=== PATIENT | female | born 1980 | race Hispanic/Latino ===

== ENCOUNTER 2022-11-14 18:33 | Inpatient (IN) | payer OTHER ==
[~2022-11-14] VITALS: Ht 160 cm; Wt 93.9 kg
[2022-11-14 19:05] LABS: BILIRUBIN,URINE NEGATIVE (NEGATIVE); COLOR,URINE YELLOW (YELLOW); GLUCOSE, URINE (UA) 50 mg/dL (NEGATIVE); KETONES,URINE 60 mg/dL (NEGATIVE); LEUKOCYTE ESTERASE ,URINE NEGATIVE Leu/uL (NEGATIVE); NITRATE,URINE NEGATIVE (NEGATIVE); OCCULT BLOOD,URINE MODERATE (NEGATIVE); PROTEIN,URINE 100 mg/dL (NEGATIVE); UROBILINOGEN,URINE 0.2 mg/dL (0.2-1.0)
[2022-11-14 19:07] LABS: HCG,QUALITATIVE URINE NEGATIVE (NEGATIVE)
[2022-11-14 19:08] LABS: APPEARANCE,URINE HAZY (CLEAR)
[2022-11-14 19:11] LABS: BACTERIA,URINE RARE /HPF (None Seen); MUCUS,URINE MANY LPF (None Seen); SQUAMOUS EPITHELIAL CELL,UR MANY /HPF (0-2); WBC,URINE 0-1 /HPF (0-1)
[2022-11-14 19:23] LABS: BASOPHILS % (AUTO) 0.3 % (0.0-5.0); EOSINOPHILS % (AUTO) 0.1 % (0.0-8.0); HEMATOCRIT 42.4 % (36-48); LYMPHOCYTES % (AUTO) 11.5 % (21.0-51.0); MEAN CORPUSCULAR HEMOGLOBIN 30.3 pg (27.0-33.0); MEAN CORPUSCULAR HGB CONC 33.7 g/dL (32.0-36.0); MEAN CORPUSCULAR VOLUME 89.8 fL (79-99); MONOCYTES % (AUTO) 3.7 % (3.0-13.0); NEUTROPHILS % (AUTO) 83.7 % (40.0-77.0); PLATELET COUNT (AUTO) 368 K/uL (130-400); RED BLOOD CELL COUNT(AUTO) 4.72 MIL/uL (4.00-5.50); RED CELL DISTRIBUTION WIDTH 12.5 % (11.0-15.5); WHITE BLOOD COUNT (AUTO) 15.3 K/uL (4.8-10.8)
[2022-11-14 19:32] LABS: CREATININE 0.8 mg/dL (0.5-1.5); POTASSIUM 3.9 mmol/L (3.5-5.1)
[2022-11-14 19:36] LABS: ALBUMIN 3.7 g/dL (3.5-5.0); TOTAL PROTEIN, SERUM 8.3 g/dL (6.0-8.3)
[2022-11-14] MEDS ORDERED: ONDANSETRON 4MG INJ IVP ONE (20:00)
[2022-11-14] MEDS ORDERED: MORPHINE 4 MG SYG IVP ONE (20:00)
[2022-11-14] MEDS ORDERED: ZOSYN 3.375GM+NS 50ML 50 ML IVPB STA (21:45)
[2022-11-14] MEDS ORDERED: 0.9%NACL 1000ML 2,000 ML IV ONE (22:00)
[2022-11-15] VITALS (7 sets, daily range): BP systolic 131–155; BP diastolic 67–95
[2022-11-15] MEDS ORDERED: NITROGLYCERIN 0.4 MG SL TAB SL PRN (01:00)
[2022-11-15] MEDS ORDERED: ACETAMINOPHEN 325 MG TAB PO PRN ×2 (01:00)
[2022-11-15] MEDS ORDERED: ONDANSETRON 4MG INJ IV PRN (01:00)
[2022-11-15] MEDS: 0.9%NACL 1000ML 1,000 ML IV SCH ×3 (01:05→20:22)
[2022-11-15 01:25] LABS: INR 0.96 (0.85-1.15); PROTHROMBIN TIME 10.5 SEC (9.6-11.6)
[2022-11-15] MEDS ORDERED: MORPHINE 2 MG SYG IVP PRN (04:00)
[2022-11-15] MEDS: ZOSYN 3.375GM+NS 50ML 50 ML IVPB SCH ×3 (05:53→20:22)
[2022-11-15 06:15] LABS: BASOPHILS % (AUTO) 0.3 % (0.0-5.0); EOSINOPHILS % (AUTO) 0.1 % (0.0-8.0); HEMATOCRIT 39.8 % (36-48); LYMPHOCYTES % (AUTO) 15.5 % (21.0-51.0); MEAN CORPUSCULAR HEMOGLOBIN 30.2 pg (27.0-33.0); MEAN CORPUSCULAR HGB CONC 32.7 g/dL (32.0-36.0); MEAN CORPUSCULAR VOLUME 92.3 fL (79-99); NEUTROPHILS % (AUTO) 77.6 % (40.0-77.0); PLATELET COUNT (AUTO) 314 K/uL (130-400); RED BLOOD CELL COUNT(AUTO) 4.31 MIL/uL (4.00-5.50); RED CELL DISTRIBUTION WIDTH 12.7 % (11.0-15.5); WHITE BLOOD COUNT (AUTO) 14.7 K/uL (4.8-10.8)
[2022-11-15 06:31] LABS: ALBUMIN 3.3 g/dL (3.5-5.0); CREATININE 0.7 mg/dL (0.5-1.5); MAGNESIUM 1.9 mg/dL (1.80-2.40); POTASSIUM 3.7 mmol/L (3.5-5.1); TOTAL PROTEIN, SERUM 7.4 g/dL (6.0-8.3)
[2022-11-15] MEDS: FAMOTIDINE 20MG TAB PO SCH ×3 (08:11→20:29)
[2022-11-15] MEDS ORDERED: KETOROLAC 15MG/ML VIAL (15MG/ML) ONE (13:59)
[2022-11-15] MEDS ORDERED: KETOROLAC 15MG/ML VIAL (15MG/ML) IM PRN (14:00)
[2022-11-15] MEDS: KETOROLAC 15MG/ML VIAL (15MG/ML) IV PRN (20:28)
[2022-11-16] VITALS (31 sets, daily range): BP systolic 115–202; BP diastolic 52–109
[2022-11-16] MEDS: ZOSYN 3.375GM+NS 50ML 50 ML IVPB SCH ×3 (03:54→19:28)
[2022-11-16] MEDS: KETOROLAC 15MG/ML VIAL (15MG/ML) IV PRN ×3 (03:59→19:28)
[2022-11-16] MEDS: 0.9%NACL 1000ML 1,000 ML IV SCH ×2 (04:51→16:55)
[2022-11-16 06:22] LABS: HEMATOCRIT 38.3 % (36-48); MEAN CORPUSCULAR HEMOGLOBIN 30.1 pg (27.0-33.0); MEAN CORPUSCULAR HGB CONC 32.9 g/dL (32.0-36.0); MEAN CORPUSCULAR VOLUME 91.6 fL (79-99); RED BLOOD CELL COUNT(AUTO) 4.18 MIL/uL (4.00-5.50); RED CELL DISTRIBUTION WIDTH 12.9 % (11.0-15.5); WHITE BLOOD COUNT (AUTO) 11.3 K/uL (4.8-10.8)
[2022-11-16 06:28] LABS: CREATININE 0.8 mg/dL (0.5-1.5); POTASSIUM 3.4 mmol/L (3.5-5.1)
[2022-11-16] MEDS: FAMOTIDINE 20MG TAB PO SCH ×2 (08:20→19:28)
[2022-11-16] MEDS ORDERED: ONDANSETRON 4MG INJ ONE (12:06)
[2022-11-16] MEDS ORDERED: PROPOFOL 10 MG/ML 20ML VIAL IV ONE (12:06)
[2022-11-16] MEDS ORDERED: DEXAMETHASONE SOD PHOSPHATE 10MG/ML 1ML VIAL ONE (12:06)
[2022-11-16] MEDS ORDERED: SUCCINYLCHOLINE CHLORIDE 20 MG/ML 10 ML VIAL ONE (12:06)
[2022-11-16] MEDS ORDERED: LIDOCAINE PF 100MG/5ML (2%) SYRINGE 5ML ONE (12:06)
[2022-11-16] MEDS ORDERED: GLYCOPYRROLATE 1 MG/5 ML SYRINGE ONE (12:06)
[2022-11-16] MEDS ORDERED: ROCURONIUM 10MG/1ML SYR 10 MG/ML ML ONE ×2 (12:07→12:37)
[2022-11-16] MEDS ORDERED: FENTANYL CITRATE PF 50 MCG/1 ML 2ML VIAL ONE (12:07)
[2022-11-16] MEDS ORDERED: NEOSTIGMINE 5MG/5ML SYR IV ONE (12:07)
[2022-11-16] MEDS ORDERED: MIDAZOLAM HCL 1 MG/ML 2ML VIAL ONE (12:07)
[2022-11-16] MEDS ORDERED: BUPIVACAINE/PF 0.5% 30ML VIAL ONE (12:17)
[2022-11-16] MEDS ORDERED: MEPERIDINE-PF 25 MG/ML SYG ONE (14:18)
[2022-11-16] MEDS ORDERED: MORPHINE 4 MG SYG IVP PRN (15:30)
[2022-11-16] MEDS ORDERED: KETOROLAC 30MG VIAL (30MG/ML) IVP PRN (15:30)
[2022-11-16] MEDS ORDERED: POTASSIUM CHLORIDE 20MEQ/100ML 100 ML IV PRN (16:30)
[2022-11-16] MEDS ORDERED: KCL 20 MEQ ERTAB PO PRN (16:30)
[2022-11-16] MEDS ORDERED: MAGNESIUM 2GM PREMIX 50ML 50 ML IV PRN (16:30)
[2022-11-16] MEDS: POTASSIUM CHLORIDE 10% ELIXIR 20 MEQ/15 ML UDCUP PO PRN ×2 (16:54→20:11)
[2022-11-16] MEDS: SIMETHICONE 80 MG TAB.CHEW PO SCH (21:36)
[2022-11-17] VITALS: BP 138/72
[2022-11-17] MEDS: 0.9%NACL 1000ML 1,000 ML IV SCH ×2 (02:09→13:00)
[2022-11-17] MEDS: KETOROLAC 15MG/ML VIAL (15MG/ML) IV PRN (02:12)
[2022-11-17] MEDS: ZOSYN 3.375GM+NS 50ML 50 ML IVPB SCH ×2 (03:59→13:00)
[2022-11-17 04:00] VITALS: BP 123/71
[2022-11-17] MEDS: SIMETHICONE 80 MG TAB.CHEW PO SCH ×2 (05:08→13:30)
[2022-11-17 05:23] LABS: BASOPHILS % (AUTO) 0.3 % (0.0-5.0); EOSINOPHILS % (AUTO) 0.2 % (0.0-8.0); HEMATOCRIT 37.8 % (36-48); LYMPHOCYTES % (AUTO) 19.2 % (21.0-51.0); MEAN CORPUSCULAR HGB CONC 32.8 g/dL (32.0-36.0); MEAN CORPUSCULAR VOLUME 91.3 fL (79-99); MONOCYTES % (AUTO) 6.3 % (3.0-13.0); NEUTROPHILS % (AUTO) 73.7 % (40.0-77.0); PLATELET COUNT (AUTO) 305 K/uL (130-400); RED BLOOD CELL COUNT(AUTO) 4.14 MIL/uL (4.00-5.50); RED CELL DISTRIBUTION WIDTH 12.7 % (11.0-15.5); WHITE BLOOD COUNT (AUTO) 12.9 K/uL (4.8-10.8)
[2022-11-17 06:16] LABS: ALBUMIN 3.1 g/dL (3.5-5.0); CREATININE 0.8 mg/dL (0.5-1.5); POTASSIUM 3.7 mmol/L (3.5-5.1)
[2022-11-17 06:45] LABS: TOTAL PROTEIN, SERUM 7.2 g/dL (6.0-8.3)
[2022-11-17] MEDS ORDERED: DOCUSATE SODIUM 100 MG CAP PO PRN (08:00)
[2022-11-17] MEDS: FAMOTIDINE 20MG TAB PO SCH (08:06)
[2022-11-17] MEDS ORDERED: LEVO-70 PO (13:14)
[2022-11-17] MEDS ORDERED: AMOX-426 PO (13:14)
== END 2022-11-17 15:25 | disposition home or self-care (01) | DRG 418 ==
LOC: EDH 18:33 → EDHIP 18:34 → WSH 11-15 02:11 → 3BH 11-15 17:21
PROVIDERS: ADMIT Hospitalist; ATTEND Hospitalist
PROC: 0FT44ZZ Resection of Gallbladder, Percutaneous Endoscopic Approach (ICD-10-PCS; principal; 2022-11-16 12:06)
DX: K80.00 Calculus of gallbladder with acute cholecystitis without obstruction (principal); E87.1 Hypo-osmolality and hyponatremia; Z20.822 Contact with and (suspected) exposure to COVID-19; E11.9 Type 2 diabetes mellitus without complications
CPT/HCPCS: 36415; 71045; 76705; 78227; 80048; 80053; 81001; 81025; 82948; 83036; 83605; 83690; 83735; 84145; 84484; 85025; 85027; 85610; 85651; 85730; 86140; 87040; 87088; 87635; A9537; G0378; J0330; J1100; J1885; J2001; J2175; J2250; J2270; J2405; J2543; J2704; J2710; J3010; J3490; J7030

== ENCOUNTER 2023-11-25 16:38 | Emergency (ER) | payer OTHER ==
[~2023-11-25] VITALS: Ht 157.5 cm; Wt 81.6 kg
[~2023-11-25 16:38] MED LIST: AMOX-426 PO; LEVO-70 PO
[2023-11-25 19:14] VITALS: BP 142/87; PULSE 82; RESP 18; O2SAT 98
[2023-11-25] MEDS ORDERED: NAPR375T6 PO (19:33)
== END 2023-11-25 19:40 | disposition home or self-care (01) ==
LOC: EDH 16:38
DX: S86.912A Strain of unspecified muscle(s) and tendon(s) at lower leg level, left leg, initial encounter (principal); S96.911A Strain of unspecified muscle and tendon at ankle and foot level, right foot, initial encounter; Z98.51 Tubal ligation status; Z90.49 Acquired absence of other specified parts of digestive tract; W18.39XA Other fall on same level, initial encounter; Y93.89 Activity, other specified; Y92.89 Other specified places as the place of occurrence of the external cause; Y99.8 Other external cause status
CPT/HCPCS: 73562; 73610